=== PATIENT | female | born 1995 | race African-American/Black ===

== ENCOUNTER 2016-10-06 20:50 | Emergency (ER) | payer OTHER ==
[~2016-10-06] VITALS: Ht 167.6 cm; Wt 81.7 kg
[~2016-10-06 20:50] MED LIST: BACTRIM DS TAB1 EACH PO; DIFLUCAN150 MG PO; NAPROSYN500 MG PO; NOHOMEMEDICATIONS; VITAFOL-OB+DHA1 EACH PO
[2016-10-06 21:12] LABS: URINE BILIRUBIN NEGATIVE (Negative); URINE BLOOD 3+ (Negative); URINE GLUCOSE-RANDOM* NEGATIVE (Negative); URINE KETONES NEGATIVE (Negative); URINE LEUKOCYTES-REFLEX NEGATIVE (Negative); URINE PROTEIN (DIPSTICK) 2+ (Negative); URINE SPECIFIC GRAVITY 1.025 (1.003-1.035)
[2016-10-06 21:13] LABS: URINE COLOR RED
[2016-10-06 21:14] LABS: SQUAMOUS 0-3 Few /LPF (0-3); URINE RBC >20 Many /HPF (0-2)
[2016-10-06 21:15] LABS: CASTS None Seen /LPF (None Seen); CRYSTALS None Seen /LPF (None Seen); URINE WBC-REFLEX 0-5 Rare /HPF (0-5)
[2016-10-06 23:41] VITALS: BP 126/85
== END 2016-10-06 23:43 | disposition home or self-care (01) ==
LOC: ER 20:50
PROVIDERS: Emergency Medicine
DX: O23.43 Unspecified infection of urinary tract in pregnancy, third trimester (principal); O12.13 Gestational proteinuria, third trimester; Z3A.37 37 weeks gestation of pregnancy; M32.9 Systemic lupus erythematosus, unspecified

== ENCOUNTER 2017-09-14 17:05 | Emergency (ER) | payer OTHER ==
[~2017-09-14] VITALS: Ht 167.6 cm; Wt 63.5 kg
[2017-09-14 17:40] LABS: ABSOLUTE NEUTROPHILS 3.5 thou/uL (1.4-8.2); BASOPHILS 1.5 % (0.0-2.0); EOSINOPHILS 2.8 % (0.0-3.0); HEMATOCRIT 35.2 % (37.0-47.0); HEMOGLOBIN 11.6 gm/dL (12.0-15.0); LYMPHOCYTES 37.2 % (24.0-44.0); PLATELET COUNT 262 thou/uL (150-400); POLYS 53.5 % (36.0-66.0); RBC 4.29 mil/uL (4.20-5.00); RDW 14.7 % (10.5-14.5); WBC 6.5 thou/uL (4.0-11.0)
[2017-09-14 17:42] LABS: URINE BILIRUBIN NEGATIVE (Negative); URINE BLOOD 2+ (Negative); URINE CLARITY CLEAR; URINE COLOR YELLOW; URINE GLUCOSE-RANDOM* NEGATIVE (Negative); URINE KETONES NEGATIVE (Negative); URINE LEUKOCYTES NEGATIVE (Negative); URINE NITRITE NEGATIVE (Negative); URINE PROTEIN (DIPSTICK) TRACE (Negative); URINE SPECIFIC GRAVITY 1.015 (1.005-1.035); URINE UROBILINOGEN 0.2 E.U./dl (0.2-1.0)
[2017-09-14 17:49] LABS: CALCIUM 8.8 mg/dL (8.5-10.1); CREATININE 0.8 mg/dL (0.6-1.0); POTASSIUM 3.5 mmol/L (3.5-5.1)
[2017-09-14 17:51] LABS: AMP/METHAMP Negative (Negative); BARBITURATES Negative (Negative); BENZODIAZEPINES Negative (Negative); CASTS None Seen /LPF (None Seen); COCAINE Negative (Negative); CRYSTALS None Seen /LPF (None Seen); METHADONE Negative (Negative); OPIATES Negative (Negative); PCP Negative (Negative); SQUAMOUS 0-3 Few /LPF (0-3)
[2017-09-14 17:52] LABS: BACTERIA 1-9 Few /HPF (None Seen); URINE RBC 3-10 Few /HPF (0-2); URINE WBC None Seen /HPF (0-5)
[2017-09-14 17:55] LABS: ALBUMIN 3.6 g/dL (3.4-5.0); TOTAL BILIRUBIN 0.4 mg/dL (<0.1-1.0); TOTAL PROTEIN 7.9 g/dL (6.4-8.2)
[2017-09-14] MEDS ORDERED: MOBIC7.5 MG PO (19:28)
== END 2017-09-14 19:36 | disposition home or self-care (01) ==
LOC: ER 17:05
PROVIDERS: Physician Assistant
DX: R56.9 Unspecified convulsions (principal); S09.8XXA Other specified injuries of head, initial encounter; M54.2 Cervicalgia; X58.XXXA Exposure to other specified factors, initial encounter; Y93.89 Activity, other specified; Y92.89 Other specified places as the place of occurrence of the external cause; Y99.8 Other external cause status

== ENCOUNTER 2017-12-08 12:47 | Emergency (ER) | payer OTHER ==
[~2017-12-08] VITALS: Ht 167.6 cm; Wt 64.4 kg
[~2017-12-08 12:47] MED LIST changes: +MOBIC7.5 MG PO
[2017-12-08] MEDS ORDERED: MOBIC15 MG PO (14:06)
[2017-12-08 15:32] VITALS: BP 109/72
== END 2017-12-08 15:32 | disposition home or self-care (01) ==
LOC: ER 12:47
DX: M25.571 Pain in right ankle and joints of right foot (principal); M32.9 Systemic lupus erythematosus, unspecified

== ENCOUNTER 2018-07-28 12:17 | Emergency (ER) | payer OTHER ==
[~2018-07-28] VITALS: Ht 167.6 cm; Wt 69.4 kg
[~2018-07-28 12:17] MED LIST changes: +MOBIC15 MG PO
[2018-07-28 12:18] VITALS: BP 108/65
[2018-07-28] MEDS ORDERED: PREDNISONE 10 M10 MG PO (12:31)
== END 2018-07-28 12:52 | disposition home or self-care (01) ==
LOC: ER 12:17
DX: R20.2 Paresthesia of skin (principal)

== ENCOUNTER 2018-11-29 06:02 | Emergency (ER) | payer OTHER ==
[~2018-11-29] VITALS: Ht 165.1 cm; Wt 68.0 kg
[~2018-11-29 06:02] MED LIST changes: +PREDNISONE 10 M10 MG PO
[2018-11-29] MEDS ORDERED: BENADRYL25 MG PO (06:18)
[2018-11-29] MEDS ORDERED: AFRIN30 ML TOP (06:18)
[2018-11-29] MEDS ORDERED: PROAIR HFA8.5 GM INH (06:22)
[2018-11-29 06:43] VITALS: BP 132/107
== END 2018-11-29 06:44 | disposition home or self-care (01) ==
LOC: ER 06:02
DX: J06.9 Acute upper respiratory infection, unspecified (principal); J30.9 Allergic rhinitis, unspecified; M32.9 Systemic lupus erythematosus, unspecified; M41.9 Scoliosis, unspecified

== ENCOUNTER 2019-06-02 14:37 | Emergency (ER) | payer OTHER ==
[~2019-06-02] VITALS: Ht 167.6 cm; Wt 68.0 kg
[~2019-06-02 14:37] MED LIST changes: +AFRIN30 ML TOP; +BENADRYL25 MG PO; +PROAIR HFA8.5 GM INH
[2019-06-02 14:54] LABS: URINE BILIRUBIN NEGATIVE (Negative); URINE BLOOD 2+ (Negative); URINE CLARITY CLEAR; URINE COLOR YELLOW; URINE GLUCOSE-RANDOM* NEGATIVE (Negative); URINE KETONES NEGATIVE (Negative); URINE NITRITE-REFLEX NEGATIVE (Negative); URINE PROTEIN (DIPSTICK) NEGATIVE (Negative); URINE SPECIFIC GRAVITY 1.015 (1.005-1.035); URINE UROBILINOGEN 0.2 E.U./dl (0.2-1.0)
[2019-06-02 14:57] LABS: URINE LEUKOCYTES-REFLEX 2+ (Negative)
[2019-06-02 15:08] LABS: CASTS None Seen /LPF (None Seen); CRYSTALS None Seen /LPF (None Seen); SQUAMOUS 4-10 Moderate /LPF (0-3); URINE RBC 3-10 Few /HPF (0-2); URINE WBC-REFLEX 6-15 Few /HPF (0-5)
[2019-06-02] MEDS ORDERED: KEFLEX500 M1 PO (15:39)
[2019-06-02] MEDS ORDERED: IBUPROFEN 600600 M1 PO (15:39)
[2019-06-02 16:19] VITALS: BP 108/58
== END 2019-06-02 16:20 | disposition home or self-care (01) ==
LOC: ER 14:37
PROVIDERS: Physician Assistant
DX: N39.0 Urinary tract infection, site not specified (principal); M32.9 Systemic lupus erythematosus, unspecified; M41.9 Scoliosis, unspecified; Z79.899 Other long term (current) drug therapy

== ENCOUNTER 2019-09-13 15:43 | Emergency (ER) | payer OTHER ==
[~2019-09-13] VITALS: Ht 167.6 cm; Wt 72.6 kg
[~2019-09-13 15:43] MED LIST changes: +IBUPROFEN 600600 M1 PO; +KEFLEX500 M1 PO
[2019-09-13] MEDS ORDERED: NAPROSYN500 MG PO (16:59)
[2019-09-13] MEDS ORDERED: NORFLEX100 MG PO (16:59)
[2019-09-13 17:07] LABS: HEMATOCRIT 36.8 % (37.0-47.0); HEMOGLOBIN 11.9 gm/dL (12.0-15.0); MCH 27.1 pg (26.0-34.0); MCHC 32.2 g/dL (28.0-37.0); MCV 84.2 fL (80.0-100.0); RBC 4.37 mil/uL (4.20-5.00); RDW 13.5 % (10.5-14.5); WBC 7.5 thou/uL (4.0-11.0)
[2019-09-13 17:17] LABS: CALCIUM 8.7 mg/dL (8.5-10.1); CREATININE 0.8 mg/dL (0.6-1.0); POTASSIUM 3.6 mmol/L (3.5-5.1)
[2019-09-13 17:45] VITALS: BP 110/72
== END 2019-09-13 17:46 | disposition home or self-care (01) ==
LOC: ER 15:43
PROVIDERS: Emergency Medicine
DX: R06.02 Shortness of breath (principal); R20.2 Paresthesia of skin; M43.6 Torticollis; M62.838 Other muscle spasm; M54.2 Cervicalgia; R42 Dizziness and giddiness; M26.69 Other specified disorders of temporomandibular joint; Z87.798 Personal history of other (corrected) congenital malformations

== ENCOUNTER 2020-08-02 01:18 | Emergency (ER) | payer OTHER ==
[~2020-08-02] VITALS: Ht 170.2 cm; Wt 81.7 kg
[~2020-08-02 01:18] MED LIST changes: +NORFLEX100 MG PO
[2020-08-02 01:39] VITALS: BP 122/77
[2020-08-02 01:40] LABS: URINE BILIRUBIN NEGATIVE (Negative); URINE BLOOD 3+ (Negative); URINE CLARITY CLOUDY; URINE COLOR YELLOW; URINE GLUCOSE-RANDOM* NEGATIVE (Negative); URINE KETONES NEGATIVE (Negative); URINE NITRITE-REFLEX NEGATIVE (Negative); URINE PROTEIN (DIPSTICK) 2+ (Negative); URINE SPECIFIC GRAVITY 1.025 (1.005-1.035)
[2020-08-02 01:42] LABS: URINE LEUKOCYTES-REFLEX 2+ (Negative)
[2020-08-02] MEDS ORDERED: GABAPENTIN25 GM PO (01:44)
[2020-08-02] MEDS ORDERED: NEURONTIN100 MG PO (01:45)
[2020-08-02 01:51] LABS: SQUAMOUS 0-3 Few /LPF (0-3)
[2020-08-02 01:52] LABS: BACTERIA-REFLEX >30 Many /HPF (None Seen); CASTS None Seen /LPF (None Seen); CRYSTALS None Seen /LPF (None Seen); MUCUS 0-3 Light strn/LPF (None Seen); URINE RBC >20 Many /HPF (0-2)
[2020-08-02] MEDS ORDERED: BACTRIM 400-801 EACH PO (02:00)
== END 2020-08-02 02:15 | disposition home or self-care (01) ==
LOC: ER 01:18
PROVIDERS: Emergency Medicine
DX: N39.0 Urinary tract infection, site not specified (principal); H00.015 Hordeolum externum left lower eyelid; H00.012 Hordeolum externum right lower eyelid; Z79.899 Other long term (current) drug therapy

== ENCOUNTER 2020-08-19 11:08 | Emergency (ER) | payer OTHER ==
[~2020-08-19] VITALS: Ht 170.2 cm; Wt 83.9 kg
[~2020-08-19 11:08] MED LIST changes: +BACTRIM 400-801 EACH PO; +GABAPENTIN25 GM PO; +NEURONTIN100 MG PO
[2020-08-19 11:09] VITALS: BP 112/70
[2020-08-19] MEDS ORDERED: ERYTHROMYCIN E3.5 G3 OPHTHALMIC (11:27)
== END 2020-08-19 11:36 | disposition home or self-care (01) ==
LOC: ER 11:08
DX: H00.15 Chalazion left lower eyelid (principal); H00.12 Chalazion right lower eyelid; Z79.899 Other long term (current) drug therapy

== ENCOUNTER 2021-02-12 09:55 | Emergency (ER) | payer OTHER ==
[~2021-02-12] VITALS: Ht 170.2 cm; Wt 71.7 kg
[~2021-02-12 09:55] MED LIST changes: +ERYTHROMYCIN E3.5 G3 OPHTHALMIC
[2021-02-12 09:56] VITALS: BP 113/81
[2021-02-12 10:18] LABS: URINE BILIRUBIN NEGATIVE (Negative); URINE BLOOD 3+ (Negative); URINE CLARITY CLEAR; URINE COLOR YELLOW; URINE GLUCOSE-RANDOM* NEGATIVE (Negative); URINE KETONES NEGATIVE (Negative); URINE LEUKOCYTES-REFLEX 2+ (Negative); URINE NITRITE-REFLEX NEGATIVE (Negative); URINE PROTEIN (DIPSTICK) 1+ (Negative); URINE SPECIFIC GRAVITY >= 1.030 (1.005-1.035)
[2021-02-12 10:58] LABS: BACTERIA-REFLEX 1-9 Few /HPF (None Seen); CASTS None Seen /LPF (None Seen); CRYSTALS None Seen /LPF (None Seen); SQUAMOUS 0-3 Few /LPF (0-3); URINE WBC-REFLEX >25 Many /HPF (0-5)
[2021-02-12] MEDS ORDERED: MACROBID 100 M100 M1 PO (11:27)
== END 2021-02-12 11:27 | disposition home or self-care (01) ==
LOC: ER 09:55
PROVIDERS: Orthopaedic Surgery Adult Reconstructive Orthopaedic Surgery
DX: N39.0 Urinary tract infection, site not specified (principal); R31.9 Hematuria, unspecified; Z87.898 Personal history of other specified conditions; Z79.899 Other long term (current) drug therapy

== ENCOUNTER 2021-02-18 02:12 | Emergency (ER) | payer OTHER ==
[~2021-02-18] VITALS: Ht 170.2 cm; Wt 80.7 kg
[~2021-02-18 02:12] MED LIST changes: +MACROBID 100 M100 M1 PO
[2021-02-18 02:19] VITALS: BP 111/79
[2021-02-18] MEDS ORDERED: PREDNISONE 20 M20 MG PO (02:21)
[2021-02-18] MEDS ORDERED: KEFLEX250 MG PO (03:46)
== END 2021-02-18 04:00 | disposition home or self-care (01) ==
LOC: ER 02:12
DX: L03.113 Cellulitis of right upper limb (principal); Z79.899 Other long term (current) drug therapy

== ENCOUNTER 2021-03-31 20:12 | Emergency (ER) | payer OTHER ==
[~2021-03-31] VITALS: Ht 167.6 cm; Wt 82.1 kg
[~2021-03-31 20:12] MED LIST changes: +KEFLEX250 MG PO; +PREDNISONE 20 M20 MG PO
[2021-03-31] MEDS ORDERED: MUCINEX600 MG PO (20:25)
[2021-03-31 23:01] VITALS: BP 104/58
--- NOTE | 2021-04-01 09:30 | EKG ---
[address] [place] [address] ELECTROCARDIOGRAM REPORT Name: VIRAJ JARRETT Room #: [facility]#: [id number] Admission: 03/31/21 Attend Phys: Discharge: Date of : [birth year] Report #: [id number] [facility] ED Test Date: 2021-03-31 Test Time: 21:00:46 Pat Name: VIRAJ JARRETT Department: Room: Gender: F Operations Agent: horace : 1995 Requested By: Partha Cope Order Number: [id number] MD: Niles Yoder Measurements Intervals [place] Rate: 68 P: 48 MN: 143 QRS: 58 QRSD: 93 T: 34 QT: 393 QTc: 418 Interpretive Statements Sinus rhythm No significant abnormality No previous ECG available for comparison Electronically Signed On 04-01-2021 9:30:00 CDT by Niles Yoder [email or web address] <ELECTRONICALLY SIGNED> By: Niles Yoder MD, [facility] 04/01/21929 99 2100 Niles Yoder MD, FACC /EPI
== END 2021-03-31 23:02 | disposition home or self-care (01) ==
LOC: ER 20:12
PROVIDERS: Emergency Medicine
DX: O26.891 Other specified pregnancy related conditions, first trimester (principal); R05.9 Cough, unspecified; Z3A.01 Less than 8 weeks gestation of pregnancy; Z20.822 Contact with and (suspected) exposure to COVID-19; Z79.899 Other long term (current) drug therapy